=== PATIENT | female | born 1990 | race Caucasian/White ===

== ENCOUNTER → 2024-07-05 | Day surgery (SDC) | payer BC ==
[~2024-07-05] MED LIST: ACETAMINOPHEN 1000 MG/100 ML 100 ML IV ONE; BUPROPION HCL150 M2 PO; CYCLOBENZAPRINE10 MG PO; DEXAMETHASONE SOD PHOS INJ 4 MG/ML SDV ONE; FENTANYL CITRATE/PF 100MCG/2 ML INJ ONE; FOLIC ACID0.8 MG; KETOROLAC TROMETHAMINE 30 MG/ML VIAL ONE; LIDOCAINE HCL 2% LOCAL INJ 5 ML SDV VIAL INJ ONE; LISINOPRIL-HCT1 EAC1 PO; NEXPLANON68 MG; ONDANSETRON HCL INJ 2MG/ML 2ML 2 MG/ML VIAL ONE; PROPOFOL IV EMULSION 10 MG/ML 20 ML VIAL ONE; SERTRALINE HCL50 MG PO; SEVOFLURANE INHAL SOLN 250 ML PEN BTL ONE; TRAZODONE HCL150 MG PO
[2024-07-05] MEDS: LACTATED RINGER'S 1,000 ML ONE (12:06)
[2024-07-05 13:26] VITALS: TEMP 97.4
[2024-07-05 14:15] VITALS: BP 118/89; PULSE 78; RESP 16; O2SAT 99
== END | disposition home or self-care (01) ==
LOC: OR 10:17 → EDBD 12:30
PROVIDERS: ATTEND Podiatrist Foot & Ankle Surgery
DX: S90.852A Superficial foreign body, left foot, initial encounter (principal); L02.612 Cutaneous abscess of left foot; I10 Essential (primary) hypertension; D68.61 Antiphospholipid syndrome; F41.9 Anxiety disorder, unspecified; F31.9 Bipolar disorder, unspecified; Z88.1 Allergy status to other antibiotic agents; Z01.810 Encounter for preprocedural cardiovascular examination; Z79.899 Other long term (current) drug therapy
CPT/HCPCS: 10120; 81025; 88305; 93005; J0131; J0690; J1100; J1885; J2003; J2405; J2704; J3010; J7121; 88300